=== PATIENT | female | born 1995 ===

== ENCOUNTER 2019-01-25 20:09 | Emergency (ER) | payer OTHER ==
[2019-01-25 20:20] VITALS: BP 123/78
[2019-01-25] MEDS ORDERED: Ciprofloxacin 0.3% OPTH.SOL* BTL ONE (20:39)
--- NOTE | 2019-01-25 20:39 | UC ---
Ear Complaint HPI - HPI Summary HPI Summary: 23-year-old woman comes in with a chief complaint of left ear pain. Patient was swimming today and she jumped about 20 feet from a class into 6 [place]. Patient felt like her left ear popped. Just went out of the water quite deep. She took a nap afterwards and when she woke up her left ear was hurting quite a bit more. Right ear also hurts. Patient has not had any upper respiratory tract infection symptoms. No fevers or chills. When she pops her years and has not helped with the pain. Now when she attempts to pop per ears the pain is any worse. - History of Current Complaint Chief Complaint: UCEar Stated Complaint: L EAR COMPLAINT Time Seen by Provider: 01/25/19 20:23 Hx Last Menstrual Period: 2 MONTHS AGO (ON CONTROL) Pain Intensity: 3 - Allergies/Home Medications Allergies/Adverse Reactions: Allergies Allergy/AdvReac Type Severity Reaction Status Date / Time codeine Allergy Rash Verified 01/25/19 20:21 Home Medications: Home Medications Escitalopram * [Lexapro *] 10 mg PO DAILY 01/25/19 [History Confirmed 01/25/19] Norethindrone AC-Eth Estradiol [Loestrin 1-20 mg-Mcg] 1 tab PO DAILY [History Confirmed 01/25/19] PMH/Surg Hx/FS Hx/Imm Hx Previously Healthy: Yes - Surgical History Surgical History: Yes Surgery Procedure, Year, and Place: HERNIA REPAIR AGE 6 - Family History Known Family History: Positive: Non-Contributory - Social History Alcohol Use: Occasionally Substance Use Type: Marijuana Smoking Status (MU): Current Some Day Smoker Review of Systems All Other Systems Reviewed And Are Negative: Yes Constitutional: Positive: Negative Skin: Positive: Negative Eyes: Positive: Negative ENT: Positive: Ear Ache Respiratory: Positive: Negative Cardiovascular: Positive: Negative Gastrointestinal: Positive: Negative Motor: Positive: Negative Neurovascular: Positive: Negative Musculoskeletal: Positive: Negative Neurological: Positive: Negative Psychological: Positive: Negative Is Patient Immunocompromised?: No Physical Exam Triage Information Reviewed: Yes Appearance: Well-Appearing, Well-Nourished, Pain Distress - MILD Vital Signs: Initial Vital Signs Temp 98.1 F 01/25/19 20:16 Pulse 81 01/25/19 20:16 Resp 16 01/25/19 20:16 BP 123/78 01/25/19 20:16 Pulse Ox 98 01/25/19 20:16 Vital Signs Reviewed: Yes Eye Exam: Normal Eyes: Positive: Conjunctiva Clear ENT: Positive: Pharynx normal, TM red - B/L REDNESS. TMS APPEAR INTACT ON EXAM. Neck: Positive: Supple Respiratory: Positive: No respiratory distress Musculoskeletal Exam: Normal Musculoskeletal: Positive: Strength Intact, ROM Intact Neurological Exam: Normal Neurological: Positive: Alert, Muscle Tone Normal Psychological Exam: Normal Psychological: Positive: Age Appropriate Behavior Skin Exam: Normal Ear Complaint Course/Dx - Course Course Of Treatment: I did not see a tympanic perforation on my examination I did not see a tympanic perforation on examination. Her TMs are red. I expect because of the pain is barry trauma. It's early to have otitis externa from swimming in 6 [place]. Overall the plan is [id number] pain medications and follow-up with ENT if worse or not improved. We discussed the possibility of infection as being unlikely at this time the patient prefers to have antibiotic drops to start if her condition does not improve before she is to follow-up with ENT. - Differential Dx/Diagnosis Provider Diagnosis: Ear barotrauma Discharge - Sign-Out/Discharge Documenting (check all that apply): Patient Departure All imaging exams completed and their final reports reviewed: No Studies - Discharge Plan Condition: Stable Disposition: HOME Patient Education Materials: Barotrauma (ED) Referrals: Davian Abarca MD [Medical Doctor] - Additional Instructions: FOLLOW UP WITH ENT IF NOT COMPLETELY IMPROVED. GET RECHECKED SOONER IF YOUR CONDITION WORSENS OR ANY QUESTIONS OR CONCERNS. - Billing Disposition and Condition Condition: STABLE Disposition: Home
== END 2019-01-25 20:54 | disposition home or self-care (01) ==
LOC: UCEAST 20:09
DX: T70.29XA Other effects of high altitude, initial encounter (principal); X58.XXXA Exposure to other specified factors, initial encounter; Y93.15 Activity, underwater diving and snorkeling; Y92.828 Other wilderness area as the place of occurrence of the external cause; Y99.8 Other external cause status; F17.210 Nicotine dependence, cigarettes, uncomplicated; Z88.5 Allergy status to narcotic agent
CPT/HCPCS: 99202; A9270-GY; G0463